=== PATIENT | male | born 1960 | race Caucasian/White ===

== ENCOUNTER → 2016-03-26 | Outpatient (CLI) | payer OTHER ==
--- NOTE | 2016-03-26 11:08 | STRESSTEST ---
[facility] Interpretive Statements 55 YO male with family history of CAD and HTN, no other risk factors here for screening. Resting EKG with sinus bradycardia. Exercised in Attila protocol to maximum stress test. No symptoms other than fatigue. Exercised into stage IV. PVCs frequently, but asymptomatic. Hypertensive response to exercise. See report in [facility] for further details. Electronically Signed On 03-26-16 15:37:08 [facility] by Jonnathan Francisco MD [email or web address]
--- NOTE | 2016-03-26 14:32 | PROCEDURE1 ---
Procedure - - Date and Time of Service: today has not yet been out of bed he did a stress test by Kamaljit vogel today Procedure Note: Procedure Performed: Exercise Stress Test Subjective: 55 years old 20 brother recently had a myocardial infarction with a stent. Positive family history for heart disease. Attila protocol Baseline Information: HR 54, BP 138/72, EKG findings at rest, sinus bradycardia Peak Exercise Data: maximum HR is 142 maximum BP 192/66 METs 11.8 Attila protocol, stage IV Test complete, fatigue Maximum ST depression was -2.3 in lead 2 at 6 minutes 30 seconds, otherwise [address] segment depression in lead 2 transiently. At 11 minutes, there was about [address] segment in leads V5 and V6. Everything appeared upsloping. Frequent PVCs noted. HR at first minute of recovery, 96. Assessment: This appears to be a negative maximal stress test with hypertensive response to exercise and frequent PVCs. The patient did have ST depression at about 2 mm in lead 2, with upsloping, noted at 6 minutes and 30 seconds, but at that time none in leads 3 or aVF. No abnormalities noted and resting phase. On auscultation, no evidence of murmurs. Exercise Prescription and Plan: I recommended that the patient do aerobic exercise, 30 minutes per day, 5 days per week. Patient should continue to maintain primary prevention for coronary artery disease, including his aspirin therapy, hypertension control, and screening as indicated clinically for diabetes and hypercholesterolemia. He should continue to not smoke. He has not used tobacco products in the past so I don't think this will be a problem. A beta yifan could be considered for hypertension with the frequent PVCs. I commended these results to the patient, Dr. Ceja, and the patient's daughter with his instructions.
== END ==
LOC: EKG 09:31
PROVIDERS: ATTEND Family Medicine
DX: I10 Essential (primary) hypertension (principal); R00.1 Bradycardia, unspecified; Z82.49 Family history of ischemic heart disease and other diseases of the circulatory system
CPT/HCPCS: 93016; 93017; 93018